=== PATIENT | male | born 1980 | race Caucasian/White ===

== ENCOUNTER 2024-08-01 12:19 | Emergency (ER) | payer MEDICAID, SELFPAY ==
--- OUTSIDE RECORDS SUMMARY | 2024-08-01 12:22 | XMS_ITS | Clinical Summary ---
Demographics Address [address] [place] [address] Home Phone Mobile Phone Email Address Preferred Language Citizen Of The [place] Marital Status Unknown Jehovah'S Witness Affiliation Does not wish to l ist Race White Ethnic Group Not or Lati no Author Organization [facility] Address [address] [place] [address] Care Team Providers Care Staff Analyst Name Role Phone Pcp, No Primary Care Provider Unavailabl e Allergies No known active allergies Medications hydrOXYzine HCL (ATARAX) 10 mg tablet TK 1 TO 2 TS PO UP TO BID PRF SEVERE ANXIETY 02/18/2019 Active Active Problems Problem Noted Date Diagnosed Date Methamphetamine dependence in remission 07/21/19 20 Chronic bilateral low back pain with bilateral s ciatica 07/21/2019 Antisocial personality disorder, Provisional r/o ADHD (attention deficit hyperactivity disord er) 07/16/2013 Anger 09/02/2012 Legal circumstances 09/02/2012 Other specified family circumstances 09/02/2012 Mixed hyperlipidemia 06/15/2010 Unspecified personality disorder 04/10/2010 Lateral epicondylitis of elbow 03/13/2010 Carpal tunnel syndrome - surgery 1&05/2009 Unspecified episodic mood disorder 05/10/2009 Resolved Problems Problem Noted Date Diagnosed Date Resolved Date Adjustment disorder with mix ed anxiety and depressed mood 07/16/2013 07/16/2013 r/o ADHD (attention deficit hyperactivity disorder), bipolar dx 07/16/2013 07/16/2013 Encounters Date Type Department Care Team Description 05/25/2024 2:30 PM TILE DITCHER Office Visit [facility] [address] [place] [address] Danya Forrest, [facility] Mental Health Consultants Visit 05/25/2024 Travel from Last 3 Months Immunizations Immunization Administration Dates Next Due COVID-19 vaccine (Eula-J&J) FIDEL OHARA COVID-19 vaccine (Moderna 100mcg/0.5mL) PF, MDV 02/15/2021 DT (Age < 7 years) 10/22/1994 MMR 10/22/1994 Td (Age >=7 Years) 06/03/2021,07/27/1998 Tdap 07/10/2010 Family History Medical History Relation Name Comments Alcohol/Drug Brother Arthritis Father Diabetes Father Hypertension Father Other Father copd Other Maternal Grandfather breathi ng problem Stroke Maternal Grandmother Other Mother brain aneurism Unknown Paternal Grandfather Unknown Paternal Grandmother Other Sister bone disease Relation Name Status Comments Brother Father Maternal Grandfather Maternal Grandmother Mother (Age 43) Paternal Grandfather Paternal Grandmother Sister Social History Tobacco Use Types Packs/Day Years Used Date Smoking Tobacco: Former Cigarettes 1 17 Smokeless Tobacco: Never Tobacco Cessation:Counseling Given: Not Answered Comments:Has not smoked since Aug 18 2020 Alcohol Use Standard Drinks/Week Comments Not Currently 0 (1 standard drink = 0.6 oz pur e alcohol) 1 time a year PHQ-2 Answer Date Recorded PHQ-2 TOTAL SCORE 0 11/06/2022 Social Connections Answer Date Recorded Frequency of Communication with Friends and Fami ly Not on file 11/12/2023 Financial Resource Strain Answer Date R ecorded Difficulty of Paying Living Expenses 3 11/06/2022 Difficulty of Paying Living Expenses Not on file 11/06/2022 Food Insecurity Answer Date Recorded Worried About Running Out of Food in the Last Ye ar 1 11/06/2022 Transportation Needs Answer Date Record ed Lack of Transportation (Medical) 1 11/06/2022 Housing Stability Answer Date Recorded Unable to Pay for Housing in the Last Year 1 11/06/2022 Sex and Gender Information Value Date Recorded Sex Assigned at Not on file Legal Sex Male 5:43 AM TILE DITCHER Gender Identity Not on file Sexual Orientation Not on file Obstetrics History Last Filed Vital Signs Vital Sign Reading Time Taken Comments Blood Pressure 133/73 11/06/2022 9:05 AM CDT Pulse 68 11/06/2022 9:05 AM CDT Temperature 36.9 C (98.4 F) 08/25/2018 3:52 AM CDT Respiratory Rate 20 08/25/2018 3:52 AM CDT Oxygen Saturation 98% 11/06/2022 9:05 AM CDT Inhaled Oxygen Concentration - - Weight 75.8 kg (167 lb 2 oz) 11/06/2022 9:05 AM CDT Height 165.1 cm (5' 5) 08/25/2018 3:52 AM CDT Body Mass Index 27.81 08/25/2018 3:52 AM CDT Plan of Treatment Health Maintenance Due Date Last Done Comments BMI (ht and wt on same day) for age 18+ 10/30/1999 Depression screening for age 12+ 11/07/2023 11/06/2022 COVID-19 vaccine series ( season) 2023 02/15/2021, 10/05/2020 Influenza Vaccine (Season Ended) 2024 Lipids for age 35-44 11/07/2027 11/06/2022, 06/07/2010, 03/16/2010, Additional history exists Tetanus booster 06/04/2031 06/03/2021, 06/30, 07/27/1998 HIV for age 15-65 Completed 05/10/2009 Hepatitis C screening for age 18-79 Completed 05/10/2009 Tdap Completed 07/10/2010 Pneumococcal series for age 6-49 Aged Out No longer eligible based on patient's age to complete this topic Procedures Procedure Name Priority Date/Time Associated Diagnosis Comments LIPID PANEL W REFLEX MEASURED LDL Routine 11/06/2022 9:45 AM CDT Lipid screening ANTI HIV 1/2 Routine 05/10/2009 11:26 AM TILE DITCHER Contact with or Exposure to Venereal Diseases ACUTE HEPATITIS PANEL Routine 05/10/2009 11:26 AM TILE DITCHER Contact with or Exposure to Venereal Diseases from Last 3 Months or Most Recently Relevant to Health Maintenance Results * (ABNORMAL) LIPID PANEL W REFLEX MEASURED LDL (11/06/2022 9:45 AM CDT) CHOLESTEROL,TOTAL 249(H) 100 - 199 mg/dL 11/06/2022 10:22 AM CDT [facility] TRIGLYCERIDES 142 <150 mg/dL 11/06/2022 10:22 AM CDT [facility] HDL CHOLESTEROL 41 >40 mg/dL 10:22 AM CDT [facility] NON-HDL CHOLESTEROL 208(H) <145 mg/dl 11/06/2022 10:22 AM T [facility] CHOL/HDL RATIO 6.07(H) <4.50 11/06/2022 10:22 AM [facility] LDL CHOLESTEROL 180(H) <=130 mg/dL 11/06/2022 10:22 AM T [facility] VLDL CHOLESTEROL 28 <=30 mg/dL 11/06/2022 10:22 AM T [facility] PROVIDER ORDERED STATUS RANDOM 11/06/2022 10:22 AM [facility] Blood BLOOD SPECIMEN / Unknown Venipuncture / Unknown 11/06/2022 9:45 AM CDT 11/06/2022 9:45 AM CDT us Ellis Estrada DO CHEMISTRY Final Result Performing Organization Address City/[facility]/[place] [address] * ANTI HIV 1/2 (05/10/2009 11:26 AM TILE DITCHER) ANTI HIV 1/2 Non-reacti ve [facility] Blood specimen (specimen) BLOOD SPECIMEN / Unknown 05/10/2009 11:26 AM TILE DITCHER 05/10/2009 11:01 AM TILE DITCHER us Raheel Mcclure MD SEND OUTS Final Re sult [facility] INTERNAL ZIP [id number] [place] [address] * ACUTE HEPATITIS PANEL (05/10/2009 11:26 AM TILE DITCHER) HBSAG Non-reacti ve [facility] IGM ANTI HBC Non-reacti ve [facility] IGM ANTI HAV Non-reacti ve [facility] ANTI HCV Non-reacti ve [facility] Blood specimen (specimen) BLOOD SPECIMEN / Unknown 05/10/2009 11:26 AM TILE DITCHER 05/10/2009 11:01 AM TILE DITCHER us Raheel Mcclure MD SEND OUTS Final Re sult [facility] INTERNAL ZIP [id number] [address] from Last 3 Months or Most Recently Relevant to Health Maintenance Care Teams Staff Analyst Relationship Specialty Start Date End Date Pcp, No . PCP - General 08/24/18
--- OUTSIDE RECORDS SUMMARY | 2024-08-01 12:22 | XMS_ITS | Clinical Summary ---
Author Organization [facility] Address [address] [place] [address] Care Team Providers Care Balance Screwhead Polisher Name Role Phone [facility], [facility] Primary Care Provider Allergies No known active allergies Medications DULoxetine (CYMBALTA) 30 MG capsuleIndicatio ns:Chronic low back pain without sciatica, unspecified back pain laterality,Anxie ty Take 1 capsule (30 mg) by mouth daily 30 capsule 08/15/2020 Active Active Problems Problem Noted Date Diagnosed Date Chronic low back pain withou t sciatica, unspecified back pain laterality 07/19/2020 Anxiety 07/19/2020 Immunizations Name Administration Dates Next Due Tdap (Adacel,boostrix) 07/10/2010 Family History Medical History Relation Comments Diabetes Father Aneurysm Mother Diabetes Mother Mental Illness Mother Heart Disease Paternal Grandfather Cancer Sister 2 Relation Status Comments Brother Alive Father Alive Maternal Grandfather Maternal Grandmother Mother Alive Paternal Grandfather Paternal Grandmother Sister 1 Alive Sister 2 Alive Sister 3 Alive Social History Tobacco Use Types Packs/Day Years Used Date Smoking Tobacco: Every Day Cigarettes Smokeless Tobacco: Former Alcohol Use Standard Drinks/Week Comments Not Currently 0 (1 standard drink = 0.6 oz pur e alcohol) PHQ-2 Answer Date Recorded PHQ-2 Score 5 07/19/2020 Adolescent Education Answer Date Record ed Getting School Help Needed Not on file 12/21 Sex and Gender Information Value Date Recorded Sex Assigned at Not on file Legal Sex Male 4:17 AM HALL TENDER Gender Identity Not on file Sexual Orientation Not on file Last Filed Vital Signs Vital Sign Reading Time Taken Comments Blood Pressure 150/74 07/19/2020 11:42 AM CDT Pulse 110 07/19/2020 11:42 AM CDT Temperature 37.7 C (99.8 F) 07/19/2020 11:42 AM CDT Respiratory Rate 20 07/19/2020 11:42 AM CDT Oxygen Saturation 99% 04/20/2020 9:43 PM HALL TENDER Inhaled Oxygen Concentration - - Weight 89.4 kg (197 lb) 07/19/2020 11:42 AM CDT Height 165.1 cm (5' 5) 07/19/2020 11:42 AM CDT Body Mass Index 32.78 07/19/2020 11:42 AM CDT Plan of Treatment Not on file Insurance MEDICAID [place] Care Teams Balance Screwhead Polisher Relationship Specialty Start Date End Date [facility], [address] [address] PCP - General 04/19/20
[2024-08-01 12:35] VITALS: BP 162/81; PULSE 78; RESP 20; TEMP 37; O2SAT 97
--- NOTE | 2024-08-01 12:49 | CRLHL7_ITS ---
For Patients: As a result of the Century Cures Act, medical imaging exams and procedure reports are released immediately into your electronic medical record. You may view this report before your referring provider. If you have questions, please contact your health care provider. INDICATION: Neck pain. Decreased range of motion. TECHNIQUE: Non-contrast axial CT of the cervical spine with coronal and sagittal reconstructions. No comparisons. FINDINGS: The overall stature and alignment of the cervical spine is within normal limits. Prevertebral soft tissues, cervical airway, dens and lateral masses are within normal limits. No evidence of bony fragments narrowing the central canal or visualized neural foramina. IMPRESSION: No radiographic evidence of acute osseous injury. Please note that all CT scans at this facility use dose modulation, iterative reconstruction, and/or weight-based dosing when appropriate to reduce radiation dose to as low as reasonably achievable. Dictated by Thomas Zuñiga MD @ 08/01/2024 1:27:30 PM (Electronically Signed)
--- NOTE | 2024-08-01 12:53 | ED.NECK ---
HPI - Neck Pain/Injury General Date Seen: 08/01/24 Chief Complaint: Neck Injury/Pain Stated Complaint: neck pain, numbness on left side Time Seen by Provider: 08/01/24 12:35 Source: patient, family, RN notes reviewed and old records reviewed Mode of arrival: ambulatory Limitations: no limitations History of Present Illness HPI Narrative: Patient is a 43-year-old gentleman who presents here with the 24-36 hour history of left-sided neck pain, with radiation of pain that comes down his left arm, over his biceps and into his forearm. He notices that whenever he lifts his arm, turns his head to the to the left, he gets exquisite pain with this driving over here was making him rather dizzy. Because of the pain he reports the me there is nothing at all going on his legs although his legs feel jumpy because of the pain in the left side of his neck into his arm, he is currently moving and did have a little bit of discomfort yesterday but it is we really a lot worse today. Took ibuprofen at home and icy Hot without relief. No previous history of problems such this, he describes in no diploplia, headaches, double vision, no recent chiropractic manipulation, trauma or falls. No history of any disc problems in his head or neck, no use of IV drugs. Her bowel risk factors for osteomyelitis. Denies any fevers chills or sweats, Right-hand dominant. MD complaint: neck pain Onset (ago): day(s) Place: home Radiation: left lateral and left upper extremity Severity: severe Quality: burning and sharp Duration: constant Relieving factors: none Associated symptoms: none Treatments prior to arrival: ibuprofen Related Data Home Medications ?Medication ?Instructions ?Recorded ?Confirmed ibuprofen 08/01/24 Previous Rx's ?Medication ?Instructions ?Recorded methylprednisolone 4 mg tablets in See Rx Instructions PO .COMPLEX 08/01/24 a dose pack (Medrol (Pavel)) #21 ea oxycodone-acetaminophen 5 mg-325 1 tab PO TID PRN pain #14 tabs 08/01/24 mg tablet (Percocet) Allergies Allergy/AdvReac Type Severity Reaction Status Date / Time No Known Drug Allergies Allergy Verified 08/01/24 12:39 Review of Systems Status of ROS: Reports: 10 or more systems reviewed and unremarkable except as noted in History and below Exam Narrative: Exam Narrative: Patient is seen in room 4, he is in some mild distress he own hold his neck in the characteristic the statue type pose, no palpable pain over his neck on palpation percussion, he has good carotid upstrokes bilaterally, with no bruits, cranial nerves 3-12 are entirely normal mouth opening normal. I did his neck extension to 16 flexion within 10 cm, right-sided flexion of 20? 0 left-sided flexion, no rotation to the left and he has patient is 60? rotation to the right. Muscle bulk seems equal bilaterally, reflexes are +1/4 his biceps triceps and brachioradialis bilaterally, pulses are normal his upper extremities both brachial and radial, chemistry professor strength is slightly decreased on the left comparison to right eye describe 4+, 1st finger thumb opposition wrist dorsiflexion finger abduction biceps triceps power shoulder abduction are all 5/5 power. Sensation normal overall the signature dermatomal areas but he maps of very well the pain radiation is C5-C6. Const: Vital Signs, click to edit/add: Vital Signs - 24 hr 08/01/24 12:35 Temperature 98.6 F Pulse Rate [Pulse Oximeter] 78 Respiratory Rate 20 Blood Pressure [Ri ght Upper Arm] 162/81 H Pulse Oximetry 97 Oxygen Delivery Me thod Room Air Documenting provider has reviewed patient's vital signs: yes Course Vital Signs Vital signs: Initial Vital Signs Temperature 98.6 F 08/01/24 12:35 Temperature Source Temporal Artery Scan 08/01/24 12:35 Pulse Rate 78 08/01/24 12:35 Respiratory Rate 20 08/01/24 12:35 Blood Pressure 162/81 H 08/01/24 12:35 Blood Pressure Mean 108 H 08/01/24 12:35 Blood Pressure Position Sitting 08/01/24 12:35 Pulse Oximetry 97 08/01/24 12:35 Oxygen Delivery Method Room Air 08/01/24 12:35 Vital Signs Temperature 98.6 F 08/01/24 12:35 Pulse Rate 78 08/01/24 12:35 Respiratory Rate 20 08/01/24 12:35 Blood Pressure 162/81 H 08/01/24 12:35 Pulse Oximetry 97 08/01/24 12:35 Oxygen Delivery Method Room Air 08/01/24 12:35 Temperature 98.6 F 08/01/24 12:35 Pulse Rate 78 08/01/24 12:35 Respiratory Rate 20 08/01/24 12:35 Blood Pressure 162/81 H 08/01/24 12:35 Pulse Oximetry 97 08/01/24 12:35 Oxygen Delivery Method Room Air 08/01/24 12:35 Medications Administered Medications: Discontinued Medications Generic Name Dose Route Start Last Admin Trade Name Abram PRN Reason Stop Dose Admin Ketorolac Tromethamine 30 mg 08/01/24 12:49 08/01/24 13:03 Ketorolac 30 Mg/Ml Inj IM 08/01/24 12:50 30 mg ONCE ONE Administration Morphine Sulfate 10 mg 08/01/24 12:49 08/01/24 13:03 Morphine 10 Mg/Ml Inj IM 08/01/24 12:50 10 mg ONCE ONE Administration MDM - Neck Pain/Injury MDM Narrative Medical decision making narrative: Differential diagnosis includes but is not limited to arthritis, fracture, spinal stenosis, sprain, and strain. This includes the life-threatening complications of fractures. I do think that this is more related to a disc cervical radiculopathy situation as opposed to a vertebral or carotid artery dissection, I think it would be reasonable to get a CT of his neck, to assess the disc spaces, pain medication with both Toradol and also morphine. Likely will require steroids also. Differential Diagnosis Differential diagnosis: Likely disc disorder of cervical region, whiplash injury to neck, closed subluxation of cervical spine, fracture of cervical spine without lesion of spinal cord, cervical radiculopathy, vertebral artery dissection, torticollis, cervical spondylosis and strain of neck muscle Medical Records Attestation: I reviewed the patient's medical records. Imaging Data Cervical spine CT: Attestation: I have reviewed the pertinent imaging results. My impression: No fracture seen, normal alignment, disc protrusion noted C5-C6, left-sided prominence. Radiologist's impression: [place] [address] Diagnostic Imaging Report Patient: Avinash Bond MR#: [id number] : 1980 Acct:[id number] Loc: ED Service Date: 08/01/[address]: Ordering Physician: Wilian Ledesma M.D. Date of Service: 08/01/24 Procedure(s): CT cervical spine wo con Accession Number(s): [id number] cc: Kaylin Zuniga PA-C; Wilian Ledesma M.D.~ For Patients: As a result of the Century Cures Act, medical imaging exams and procedure reports are released immediately into your electronic medical record. You may view this report before your referring provider. If you have questions, please contact your health care provider. INDICATION: Neck pain. Decreased range of motion. TECHNIQUE: Non-contrast axial CT of the cervical spine with coronal and sagittal reconstructions. No comparisons. FINDINGS: The overall stature and alignment of the cervical spine is within normal limits. Prevertebral soft tissues, cervical airway, dens and lateral masses are within normal limits. No evidence of bony fragments narrowing the central canal or visualized neural foramina. IMPRESSION: No radiographic evidence of acute osseous injury. Please note that all CT scans at this facility use dose modulation, iterative reconstruction, and/or weight-based dosing when appropriate to reduce radiation dose to as low as reasonably achievable. Dictated by Thomas Zuñiga MD @ 08/01/2024 1:27:30 PM Discharge Plan Discharge Clinical Impression: Cervical radiculopathy Patient Disposition: Home w/ Parent or Adult Condition: Improved Instructions: Cervical Radiculopathy (ED), Epidural Steroid Injection (DC), Neck Pain (ED) Additional Instructions: Home rest, use of ice on her neck, pain medication as needed. Recommend steroids, follow-up with primary care next week, may need physical therapy also. We now return as needed if increasing fevers chills nausea vomiting or weakness in the arm. Activity Level: Light activity Discharge Diet: Regular Prescriptions: New methylprednisolone [Medrol (Pavel)] 4 mg tablets,dose pack See Rx Instructions .ROUTE .COMPLEX Qty: 21 0RF Rx Instructions: for 6 days oxycodone-acetaminophen [Percocet] 5-325 mg tablet 1 tab PO TID PRN (Reason: pain) Qty: 14 0RF No Action ibuprofen Follow Up/Referrals: Kaylin Zuniga PA-C [Primary Care Provider] - Stand Alone Forms: MyHealth Info Instructions
--- OUTSIDE RECORDS SUMMARY | 2024-08-01 13:01 | XMS_ITS | Clinical Summary ---
Demographics Address [address] [place] [address] Home Phone Mobile Phone Email Address Preferred Language Macedonian Marital Status Unknown Advent Affiliation Does not wish to l ist Race White Ethnic Group Not or Lati no Author Organization [facility] Address [address] [place] [address] Care Team Providers Care Paperhanger Apprentice Name Role Phone Pcp, No Primary Care [...] Department Care Team Description 05/25/2024 2:30 PM ENTERPRISE ENGINEER Office Visit [facility] [address] [place] [address] Danya Forrest, [facility] Mental Health Consultants Visit 05/25/2024 Travel [...] on file Legal Sex Male 5:43 AM ENTERPRISE ENGINEER Gender Identity Not on file Sexual Orientation [...] ANTI HIV 1/2 Routine 05/10/2009 11:26 AM ENTERPRISE ENGINEER Contact with or Exposure to Venereal Diseases ACUTE HEPATITIS PANEL Routine 05/10/2009 11:26 AM ENTERPRISE ENGINEER Contact with or Exposure to Venereal Diseases from Last 3 Months or Most Recently Relevant to Health Maintenance Results * (ABNORMAL) LIPID PANEL W REFLEX MEASURED LDL (11/06/2022 9:45 AM CDT) CHOLESTEROL,TOTAL 249(H) 100 - 199 mg/dL 11/06/2022 10:22 AM CDT [facility] TRIGLYCERIDES 142 <150 mg/dL 11/06/2022 10:22 AM CDT [facility] HDL CHOLESTEROL 41 >40 mg/dL 10:22 AM CDT [facility] NON-HDL CHOLESTEROL 208(H) <145 mg/dl 11/06/2022 10:22 AM T [facility] CHOL/HDL RATIO 6.07(H) <4.50 11/06/2022 10:22 AM [facility] LDL CHOLESTEROL 180(H) <=130 mg/dL 11/06/2022 10:22 AM T [facility] VLDL CHOLESTEROL 28 <=30 mg/dL 11/06/2022 10:22 AM T [facility] PROVIDER ORDERED STATUS RANDOM 11/06/2022 10:22 AM [facility] Blood BLOOD SPECIMEN / Unknown Venipuncture / Unknown 11/06/2022 9:45 AM CDT 11/06/2022 9:45 AM CDT us Ellis Estrada DO CHEMISTRY Final Result Performing Organization Address City/[facility]/[place]IP [place] [address] * ANTI HIV 1/2 (05/10/2009 11:26 AM ENTERPRISE ENGINEER) ANTI HIV 1/2 Non-reacti ve [facility] Blood specimen (specimen) BLOOD SPECIMEN / Unknown 05/10/2009 11:26 AM ENTERPRISE ENGINEER 05/10/2009 11:01 AM ENTERPRISE ENGINEER us Raheel Mcclure MD SEND OUTS Final Re sult [facility] INTERNAL ZIP [address] [place] [address] * ACUTE HEPATITIS PANEL (05/10/2009 11:26 AM ENTERPRISE ENGINEER) HBSAG Non-reacti ve [facility] IGM ANTI HBC Non-reacti ve [facility] IGM ANTI HAV Non-reacti ve [facility] ANTI HCV Non-reacti ve [facility] Blood specimen (specimen) BLOOD SPECIMEN / Unknown 05/10/2009 11:26 AM ENTERPRISE ENGINEER 05/10/2009 11:01 AM ENTERPRISE ENGINEER us Raheel Mcclure MD SEND OUTS Final Re sult [facility] INTERNAL ZIP [phone] [address] from Last 3 Months or Most Recently Relevant to Health Maintenance Care Teams Paperhanger Apprentice Relationship Specialty Start Date End Date Pcp, No . PCP - General 08/24/18
--- OUTSIDE RECORDS SUMMARY | 2024-08-01 13:01 | XMS_ITS | Clinical Summary ---
Author Organization [facility] Address [address] [place] [address] Care Team Providers Care Shed Hand Name Role Phone [facility], [facility] [place] Primary Care Provider Allergies No known active [...] on file Legal Sex Male 4:17 AM HYDRAMATIC MECHANIC Gender Identity Not on file Sexual Orientation Not on file Last Filed Vital Signs Vital Sign Reading Time Taken Comments Blood Pressure 150/74 07/19/2020 11:42 AM CDT Pulse 110 07/19/2020 11:42 AM CDT Temperature 37.7 C (99.8 F) 07/19/2020 11:42 AM CDT Respiratory Rate 20 07/19/2020 11:42 AM CDT Oxygen Saturation 99% 04/20/2020 9:43 PM HYDRAMATIC MECHANIC Inhaled Oxygen Concentration - - Weight 89.4 kg (197 lb) 07/19/2020 11:42 AM CDT Height 165.1 cm (5' 5) 07/19/2020 11:42 AM CDT Body Mass Index 32.78 07/19/2020 11:42 AM CDT Plan of Treatment Not on file Insurance MEDICAID [place] Care Teams Shed Hand Relationship Specialty Start Date End Date [facility], [address] [address] PCP - General 04/19/20
[2024-08-01] MEDS: KETOROLAC 30 MG/ML inj IM (13:03)
[2024-08-01] MEDS: MORPHINE 10 MG/ML inj IM (13:03)
[2024-08-01 13:34] VITALS: BP 132/103; PULSE 76; RESP 16
== END 2024-08-01 13:35 | disposition home or self-care (01) ==
PROVIDERS: Emergency Provider Family Medicine; PCP Physician Assistant Medical
DX: M54.12 Radiculopathy, cervical region (principal)
CPT/HCPCS: 72125; 96372; 99283; 99284; J1885; J2270